=== PATIENT | female | born 1950 ===

== ENCOUNTER 2022-06-25 06:20 | Day surgery (SDC) | payer OTHER ==
[~2022-06-25 06:20] MED LIST: CARDURA1 MG PO; EVISTA60 MG PO; LIPITOR40 MG PO; MAGNESIUM500 MG PO; NORVASC5 MG PO; OMEGA-31000 MG PO; ZESTRIL40 M1 PO
[2022-06-25] MEDS ORDERED: TRAM1TAB98 PO (11:58)
[2022-06-25] MEDS ORDERED: MACROBID 100 M100 MG PO (11:58)
== END 2022-06-25 15:20 | disposition home or self-care (01) ==
LOC: CIR.AMB 06:20
PROVIDERS: ATTEND Obstetrics & Gynecology Gynecology
DX: N81.11 Cystocele, midline (principal); N81.12 Cystocele, lateral; N89.4 Leukoplakia of vagina; R23.4 Changes in skin texture; Z88.2 Allergy status to sulfonamides; I10 Essential (primary) hypertension; Z20.822 Contact with and (suspected) exposure to COVID-19